=== PATIENT | male | born 1965 | race African-American/Black ===

== ENCOUNTER 2024-12-18 10:27 | Outpatient (CLI) | payer OTHER | END 2024-12-18 10:28 | disposition home or self-care (01) | LOC: CSHWCC 10:27 | PROVIDERS: ATTEND Nurse Practitioner Family | DX: L97.511 Non-pressure chronic ulcer of other part of right foot limited to breakdown of skin (principal); I73.9 Peripheral vascular disease, unspecified | CPT/HCPCS: 11042 ==